=== PATIENT | male | born 1950 | race African-American/Black ===

== ENCOUNTER 2017-10-28 22:23 | Emergency (ER) | payer MEDICARE, MEDICAID ==
[~2017-10-28] VITALS: Ht 180.3 cm; Wt 113.4 kg
[~2017-10-28 22:23] MED LIST: BENADRYL ALLERG25 M1 PO; CARDIZEM60 MG ORAL; COLACE250 MG ORAL; FUROSEMIDE20 M1 ORAL; KLOR-CON 88 MEQ ORAL; LASIX20 M1 ORAL; LISINOPRIL10 MG ORAL; NITROFURANTOIN100 M2 ORAL; NORCO 5-325 TA1 EACH PO; PAXIL20 MG ORAL; QUETIAPINE FUM100 MG ORAL; QUETIAPINE FUMA25 MG ORAL; SEROQUEL25 MG ORAL; TRAZODONE HCL150 MG ORAL; TRAZODONE HCL50 MG ORAL; XALATAN2.5 ML LEFT EYE; ZESTRIL20 MG ORAL
--- NOTE | 2017-10-28 23:23 | Emergency Room Report ---
History of Present Illness General Chief Complaint: Behavioral Complaint Source: Patient Present Illness HPI 67-year-old male, history of schizophrenia, presenting with suicidal ideation. He is brought in from his shelter, was found to attempt to wrap a cord around his neck. Patient complaining of auditory hallucinations, telling him to harm himself. Denies any chest pain shortness of breath abdominal pain Allergies: Coded Allergies: No Known Allergies (Unverified , 10/17/12) Patient History Past Medical History: see triage record Past Surgical History: none Pertinent Family History: none Reviewed Nursing Documentation: PMH: Agreed, PSxH: Agreed Nursing Documentation-PMH Hx Hypertension: Yes - OCCULAR HTN Hx COPD: Yes Review of Systems All Other Systems: negative except mentioned in HPI Physical Exam Vital Signs Date Time Temp Pulse Resp B/P (MAP) Pulse Ox O2 Delivery O2 Flow Rate FiO2 10/28/17 22:25 98.1 100 20 104/68 98 Room Air Sp02 EP Interpretation: reviewed, normal General Appearance: alert, GCS 15, non-toxic, mild distress Head: normocephalic, atraumatic Eyes: bilateral eye PERRL, bilateral eye EOMI, bilateral eye other - b/l conjunctivitis ENT: normal ENT inspection, normal pharynx, normal voice, moist mucus membranes Neck: normal inspection, full range of motion, supple Respiratory: normal inspection, lungs clear, normal breath sounds, no respiratory distress, no retraction, no wheezing, speaking full sentences, chest symmetrical Cardiovascular #1: normal inspection, regular rate, rhythm, normal capillary refill Cardiovascular #2: 2+ radial (R), 2+ radial (L) Gastrointestinal: normal inspection, non tender, soft, non-distended, no guarding Musculoskeletal: normal inspection, back normal, normal range of motion, non- tender Neurologic: oriented x3, motor strength/tone normal Psychiatric: depressed affect, anxious, other - +delusions, AH, suicidal ideation Skin: normal inspection, normal color, no rash, warm/dry, well hydrated, normal turgor Medical Decision Making Diagnostic Impression: Primary Impression: Conjunctivitis Additional Impression: Suicidal ideation ER Course 67-year-old male with suicidal ideation DDX: Schizophrenia/suicidal ideation Plan: Obtain labs, ua Psych consult ER course: Patient has remained stable during ED stay. Sleeping comfortably Dr Lopez from psych paged about this patient Signed out to Dr Gillis 67 yo M with suicidal ideation -pending psych consult -not on hold Please note that this Emergency Department Report was dictated using [employer] thread laster technology software, occasionally this can lead to erroneous entry secondary to interpretation by the dictation equipment EKG Diagnostic Results EP Interpretation: Yes Rate: normal Rhythm: NSR ST Segments: No acute changes ASA given to patient: No Laboratory Tests Test 10/28/17 23:29 10/29/17 00:42 10/29/17 01:10 Urine Color Yellow Urine Appearance Clear Urine pH 5 (4.5-8.0) Urine Specific [place] 1.020 (1.005-1.035) Urine Protein Negative (NEGATIVE) Urine Glucose (UA) Negative (NEGATIVE) Urine Ketones Negative (NEGATIVE) Urine Occult Blood Negative (NEGATIVE) Urine Nitrite Negative (NEGATIVE) Urine Bilirubin Negative (NEGATIVE) Urine Urobilinogen Normal MG/DL (0.0-1.0) Urine Leukocyte Esterase Negative (NEGATIVE) Urine Opiates Screen Negative (NEGATIVE) Urine Barbiturates Screen Negative (NEGATIVE) Phencyclidine (PCP) Screen Negative (NEGATIVE) Urine Amphetamines Screen Negative (NEGATIVE) Urine Benzodiazepines Screen Negative (NEGATIVE) Urine Cocaine Screen Negative (NEGATIVE) Urine Marijuana (THC) Screen Negative (NEGATIVE) Sodium Level 139 MMOL/L (136-145) Potassium Level 4.1 MMOL/L (3.5-5.1) Chloride Level 102 MMOL/L (98-107) Carbon Dioxide Level 33 MMOL/L (21-32) H Anion Gap 4 mmol/L (5-15) L Blood Urea Nitrogen 23 mg/dL (7-18) H Creatinine 1.6 MG/DL (0.55-1.30) H Estimate Glomerular Filtration Rate 52.4 mL/min (>60) Glucose Level 128 MG/DL (74-106) H Calcium Level 8.8 MG/DL (8.5-10.1) Total Bilirubin 0.2 MG/DL (0.2-1.0) Aspartate Amino Transferase (AST) 21 U/L (15-37) Alanine Aminotransferase (ALT) 21 U/L (12-78) Alkaline Phosphatase 111 U/L (46-116) Total Protein 6.6 G/DL (6.4-8.2) Albumin 2.9 G/DL (3.4-5.0) L Globulin 3.7 g/dL Albumin/Globulin Ratio 0.8 (1.0-2.7) L Salicylates Level 3.2 ug/mL (2.8-20) Acetaminophen Level < 2 MCG/ML (10-30) L Serum Alcohol < 3 mg/dL White Blood Count 8.7 K/UL (4.8-10.8) Red Blood Count 4.14 M/UL (4.70-6.10) L Hemoglobin 13.4 G/DL (14.2-18.0) L Hematocrit 40.4 % (42.0-52.0) L Mean Corpuscular Volume 98 FL (80-99) Mean Corpuscular Hemoglobin 32.3 PG (27.0-31.0) H Mean Corpuscular Hemoglobin Concent 33.1 G/DL (32.0-36.0) Red Cell Distribution Width 14.9 % (11.6-14.8) H Platelet Count 171 K/UL (150-450) Mean Platelet Volume 6.5 FL (6.5-10.1) Neutrophils (%) (Auto) 61.8 % (45.0-75.0) Lymphocytes (%) (Auto) 29.9 % (20.0-45.0) Monocytes (%) (Auto) 5.5 % (1.0-10.0) Eosinophils (%) (Auto) 1.8 % (0.0-3.0) Basophils (%) (Auto) 1.0 % (0.0-2.0) Last Vital Signs Date Time Temp Pulse Resp B/P (MAP) Pulse Ox O2 Delivery O2 Flow Rate FiO2 10/28/17 22:25 98.1 100 20 104/68 98 Room Air Ben Osorio M.D. Oct 28, 2017 23:23
[2017-10-28 23:47] LABS: APPEARANCE,URINE CLEAR; BILIRUBIN, URINE NEGATIVE (NEGATIVE); GLUCOSE, URINE (UA) NEGATIVE (NEGATIVE); KETONES,URINE NEGATIVE (NEGATIVE); LEUKOCYTE ESTERASE ,URINE NEGATIVE (NEGATIVE); NITRITE,URINE NEGATIVE (NEGATIVE); PH,URINE 5 (4.5-8.0); PROTEIN,URINE NEGATIVE (NEGATIVE); UROBILINOGEN,URINE NORMAL MG/DL (0.0-1.0)
[2017-10-28 23:50] LABS: COLOR,URINE YELLOW
[2017-10-29] VITALS: BP 122/62
[2017-10-29 01:13] LABS: EOSINOPHILS % (AUTO) 1.8 % (0.0-3.0); HEMATOCRIT 40.4 % (42.0-52.0); HEMOGLOBIN 13.4 G/DL (14.2-18.0); LYMPHOCYTES % (AUTO) 29.9 % (20.0-45.0); MEAN CORPUSCULAR VOLUME 98 FL (80-99); MONOCYTES % (AUTO) 5.5 % (1.0-10.0); NEUTROPHILS % (AUTO) 61.8 % (45.0-75.0); PLATELET COUNT 171 K/UL (150-450); RED BLOOD COUNT 4.14 M/UL (4.70-6.10); RED CELL DISTRIBUTION WIDTH 14.9 % (11.6-14.8); WHITE BLOOD COUNT 8.7 K/UL (4.8-10.8)
[2017-10-29 02:11] LABS: ANION GAP 4 mmol/L (5-15); BLOOD UREA NITROGEN 23 mg/dL (7-18); CALCIUM 8.8 MG/DL (8.5-10.1); CARBON DIOXIDE 33 MMOL/L (21-32); CHLORIDE 102 MMOL/L (98-107); CREATININE 1.6 MG/DL (0.55-1.30); POTASSIUM 4.1 MMOL/L (3.5-5.1); SODIUM 139 MMOL/L (136-145)
[2017-10-29 02:15] LABS: ALANINE AMINOTRANSFERASE 21 U/L (12-78); ALBUMIN 2.9 G/DL (3.4-5.0); ALBUMIN/GLOBULIN RATIO 0.8 (1.0-2.7); ALKALINE PHOSPHATASE 111 U/L (46-116); ASPARTATE AMINO TRANSFERASE 21 U/L (15-37); BILIRUBIN,TOTAL 0.2 MG/DL (0.2-1.0)
[2017-10-29 04:42] VITALS: BP 133/68
[2017-10-29 08:02] VITALS: BP 132/65
[2017-10-29 12:01] VITALS: BP 133/65
[2017-10-29 13:41] VITALS: BP 121/77
--- NOTE | 2017-10-30 12:56 | Consultation ---
DATE OF CONSULTATION: 10/29/2017 CONSULTING PHYSICIAN: Anatoly Lopez M.D. HISTORY OF PRESENT ILLNESS: This is a 67-year-old male with multiple medical problems with history of conjunctivitis, blindness, hypertension, obesity, high creatinine and BUN due to CKD, who has been admitted to the hospital after suicide attempt. He wrapped telephone cord around his neck and attempted to hang himself. A 911 was called. The patient was brought into the hospital for psychiatric evaluation. During evaluation, the patient is angry, irritable, depressed mood, anhedonia, worthlessness, hopelessness, and decreased energy. He is having suicidal ideation with intention to kill himself by hanging himself. He is also having auditory hallucinations. PAST PSYCHIATRIC HISTORY: No psychiatric hospitalizations. Diagnosed with schizophrenia, has had suicide attempt in the past. PAST MEDICAL HISTORY: Significant for high BUN and creatinine, schizophrenia, and depression. ALLERGIES: No known drug allergies. SUBSTANCE ABUSE HISTORY: Significant for amphetamines. MENTAL STATUS EXAMINATION: The patient is alert and oriented times self, place, and situation he is in. He is legally blind. Mood is depressed. Affect is constricted, congruent with mood. Thought process, linear. Thought content, positive for suicidal ideations with intent to hang himself. Insight and judgment is impaired. ASSESSMENT: [place] I Schizophrenia. [place] II Deferred. [place] III As above. [place] IV High. [place] V 25. PLAN: 1. We will transfer the patient to [facility] at this time. 2. We will provide the patient with supportive therapy and reality orientation. Anatoly Lopez M.D. DR: CARLOS JOB#: [id number] CC:
--- NOTE | 2017-11-05 18:03 | Cardiology Report ---
APPROVED REPORT EKG Measurement Heart [id number] Normal sinus rhythm Nonspecific T wave abnormality Abnormal ECG
== END 2017-10-29 12:52 ==
LOC: EDBD 22:23 → EDUNIT# 22:23 → EMR 22:45
DX: R45.851 Suicidal ideations (principal); H10.9 Unspecified conjunctivitis; I10 Essential (primary) hypertension; J44.9 Chronic obstructive pulmonary disease, unspecified
CPT/HCPCS: 36415; 80053; 80307; 81003; 85025; 93005; 99285; G0480; 80329